=== PATIENT | male | born 1965 | race African-American/Black ===

== ENCOUNTER 2016-09-03 11:28 | Emergency (ER) | payer OTHER ==
[~2016-09-03] VITALS: Ht 198.1 cm; Wt 154.2 kg
[2016-09-03] MEDS ORDERED: ONDANSETRON 4 MG ORAL DISINTEGRATING TAB (S0181) PO ONE (12:15)
[2016-09-03] MEDS ORDERED: PERCOCET 5MG/325MG TAB PO ONE (12:15)
[2016-09-03] MEDS ORDERED: KETOROLAC 60 MG/2 ML VIAL (J1885) IM ONE (12:15)
--- NOTE | 2016-09-03 13:14 | REP ---
Knees pain and popping sensation when walking. PRIORS: None. There is slight tricompartmental marginal osteophytosis with mild medial compartmental narrowing. There is no acute fracture or dislocation. IMPRESSION: Chronic changes as described above. Signed by Harshal Rock DO 09/03/2016 02:18 P
[2016-09-03] MEDS ORDERED: PERC5TAB12 PO (13:16)
[2016-09-03] MEDS ORDERED: TOPA1TAB PO (13:16)
[2016-09-03 13:25] VITALS: BP 130/76
== END 2016-09-03 13:26 | disposition home or self-care (01) ==
LOC: M ED 12:23
DX: S83.91XA Sprain of unspecified site of right knee, initial encounter (principal); X58.XXXA Exposure to other specified factors, initial encounter; Y92.89 Other specified places as the place of occurrence of the external cause; Y93.01 Activity, walking, marching and hiking; Y99.8 Other external cause status; R51 Headache; R10.13 Epigastric pain; I10 Essential (primary) hypertension; J45.909 Unspecified asthma, uncomplicated; I25.10 Atherosclerotic heart disease of native coronary artery without angina pectoris; I25.2 Old myocardial infarction; E78.9 Disorder of lipoprotein metabolism, unspecified; F43.10 Post-traumatic stress disorder, unspecified; Z88.8 Allergy status to other drugs, medicaments and biological substances
CPT/HCPCS: 73564; 96372; 99283; J1885